=== PATIENT | female | born 1985 | race African-American/Black ===

== ENCOUNTER 2017-03-21 18:55 | Emergency (ER) | payer OTHER, SELFPAY ==
[2017-03-21] MEDS ORDERED: HYDROcodone/Acetaminophen 10/325 mg Tablet ONE (19:53)
== END 2017-03-21 20:01 | disposition home or self-care (01) ==
LOC: ERS 18:55
DX: K04.7 Periapical abscess without sinus (principal); K12.0 Recurrent oral aphthae; K02.9 Dental caries, unspecified
CPT/HCPCS: 99282

== ENCOUNTER 2017-05-02 10:54 | Emergency (ER) | payer OTHER, SELFPAY | END 2017-05-02 12:25 | disposition home or self-care (01) | LOC: ERS 10:54 | DX: R21 Rash and other nonspecific skin eruption (principal) | CPT/HCPCS: 99282 ==

== ENCOUNTER 2017-05-19 13:07 | Emergency (ER) | payer SELFPAY ==
[2017-05-19] MEDS ORDERED: Morphine 4 MG/ML VIAL ONE (14:37)
[2017-05-19] MEDS ORDERED: Ketorolac Tromethamine 30 MG/ML VIAL ONE (14:37)
[2017-05-19] MEDS ORDERED: Bupivacaine 0.25% 10 ML VIAL ONE (14:49)
[2017-05-19] MEDS ORDERED: Lidocaine 1% PF 5 ML VIAL ONE (14:49)
== END 2017-05-19 15:19 | disposition home or self-care (01) ==
LOC: ERS 13:07
DX: K02.9 Dental caries, unspecified (principal)
CPT/HCPCS: 93005; 96372; J1885; J2001; J2270; S0020

== ENCOUNTER 2017-07-03 12:35 | Emergency (ER) | payer SELFPAY ==
--- NOTE | 2017-07-03 14:35 | RAD ---
TWO VIEW CHEST SERIES: Indication: Chest pain, anxiety. FINDINGS: Reference made to 02-02-09 exam. Redemonstration of S-shaped scoliosis of the imaged thoracolumbar spine. There is a rounded density o verlying the left mid to lower chest on the frontal view with a subtle area of nodular density, invol ving the inferior substernal region on the lateral projection. This is not further characterized. The right lung is clear. No effusion or discrete pneumothorax. IMPRESSION: There is nodular density overlying the left chest as discussed above. Finding is nonspecific. Recomme nd a follow up two view chest radiograph to exclude persistence on the frontal and lateral projection s. Should finding persist a radiograph follow up, CT thorax would be indicated to exclude an underlyi ng nodule. Code LN POS: [facility]
== END 2017-07-03 14:29 | disposition home or self-care (01) ==
LOC: ERS 12:35
DX: R07.89 Other chest pain (principal)
CPT/HCPCS: 71046; 93005

== ENCOUNTER 2017-08-13 10:18 | Emergency (ER) | payer SELFPAY ==
[2017-08-13] MEDS ORDERED: HYDROcodone/Acetaminophen 10/325 mg Tablet ONE (11:42)
--- NOTE | 2017-08-13 12:24 | RAD ---
LEFT ELBOW 4 VIEWS: Date: 08/13/17 HISTORY: Pain. COMPARISON: None. FINDINGS: Joint spaces are preserved. No fracture or malalignment. No joint effusion. IMPRESSION: Unremarkable left elbow 4 views. POS: [facility]
== END 2017-08-13 13:05 | disposition home or self-care (01) ==
LOC: ERS 10:18
DX: S53.402A Unspecified sprain of left elbow, initial encounter (principal); S16.1XXA Strain of muscle, fascia and tendon at neck level, initial encounter; X58.XXXA Exposure to other specified factors, initial encounter

== ENCOUNTER 2017-08-30 10:18 | Emergency (ER) | payer SELFPAY ==
--- NOTE | 2017-08-30 12:15 | RAD ---
CERVICAL SPINE 3 VIEWS: Date: 08/30/17 HISTORY: 32-year-old female with history of right lateral neck pain, worse with bending, and radiation down ri ght arm and side. FINDINGS: Moderate artifact overlies the cervical spine on the lateral view. C7 and C7-T1 are mostly obscured o n the lateral view, and a portion of the tip of the odontoid and C1 are obscured on the AP open-mouth view. No evidence for significant malalignment. No prevertebral soft tissue swelling. No significant disc osteophytosis. IMPRESSION: No acute process involving the visualized cervical spine. POS: [facility]
[2017-08-30] MEDS ORDERED: Ibuprofen 200 MG TAB ONE (12:25)
[2017-08-30] MEDS ORDERED: Diazepam 5 MG TAB ONE (12:25)
== END 2017-08-30 12:59 | disposition home or self-care (01) ==
LOC: ERS 10:18
DX: M54.2 Cervicalgia (principal); M25.511 Pain in right shoulder
CPT/HCPCS: 72040

== ENCOUNTER 2017-10-30 19:33 | Emergency (ER) | payer SELFPAY ==
[2017-10-30 20:05] LABS: Bilirubin Small (Negative); Blood, Urine Negative (Negative); Clarity CLOUDY (Clear); Glucose, Urine (Dipstick) Negative (Negative); Leukocyte Small (Negative); Nitrite Negative (Negative); Protein, Urine (Dipstick) Trace mg/dL (Neg-Trace); Specific Gravity, Urine 1.031 (1.002-1.036); pH, Urine 5.5 (5.0-9.0)
[2017-10-30 20:07] LABS: Bacteria/HPF 4+ HPF (None Seen); RBC/HPF 0-3 HPF (0-3)
[2017-10-30 20:09] LABS: Pathc Cast-AUWi Flag 3.34 (0-2.49)
[2017-10-30 20:17] LABS: Pregnancy Test - Urine (BHCG) Negative (Negative); Pregu Control Background? CLEAR/WHITE (CLR/WHITE); Pregu Control Bar Appear? YES (CONTROL BAR); Specific Gravity 1.031 (1.002-1.036)
[2017-10-30 20:18] LABS: Hyaline Casts/LPF 0-3 HYALINE CAST LPF (0-3 Hyaline)
--- NOTE | 2017-10-30 20:37 | RAD ---
THREE VIEWS LEFT HAND; 10/30/17 HISTORY: Pain. Left thumb pain, times 1 week. COMPARISON: 07/31/14. FINDINGS: No fracture. No cortical irregularity. No periosteal reaction. No significant loss of joint space hei ght. IMPRESSION: Unremarkable three views left hand. POS: [facility]
[2017-10-30 20:44] LABS: #Basophils 0.1 thou/uL (0.0-0.2); #Eosinphils 0.4 thou/uL (0.0-0.7); #Lymphocytes 2.3 thou/uL (1.20-3.40); #Monocytes 0.5 thou/uL (0.11-0.59); #Neutrophils 2.3 thou/uL (1.40-6.50); %Basophils 1.2 % (0.0-1.0); %Eosinophils 7.5 % (0.0-10.0); %Lymphocytes 41.6 % (21.0-51.0); %Monocytes 8.8 % (0.0-10.0); Hemoglobin 11.8 g/dL (12.0-16.0); Mean Corpuscular HGB CONC 32.3 g/dL (32.0-36.0); Mean Corpuscular Hemoglobin 26.9 pg (27.0-31.0); Mean Corpuscular Volume 83.3 fl (81.0-99.0); Mean Platelet Volume 9.1 fL (7.4-10.4); Platelet Count 184 thou/uL (130-400); RBC Distribution Width 13.1 % (11.5-14.5); Red Blood Cell (RBC) Count 4.39 mill/uL (4.20-5.40); White Blood Cell (WBC) Count 5.6 thou/uL (4.8-10.8)
[2017-10-30 21:00] LABS: ALT (SGPT) 9 U/L (8-55); AST (SGOT) 22 U/L (5-34); Albumin 4.2 g/dL (3.5-5.0); Alkaline Phosphatase 31 U/L (40-150); Anion Gap 10 mmol/L (10-20); BUN (Urea Nitrogen) 10 mg/dL (7.0-18.7); Bilirubin, Total 0.4 mg/dL (0.2-1.2); Calc. Creatinine Clearance 0 mL/min (70-130); Calcium 8.9 mg/dL (7.8-10.44); Carbon Dioxide 27 mmol/L (22-29); Chloride 105 mmol/L (98-107); Estimated GFR-MDRD Greater than 90; Globulin 3.4 g/dL (2.4-3.5); Glucose 60 mg/dL (70-105); Lipase 29 U/L (8-78); Potassium 3.6 mmol/L (3.5-5.1); Protein, Total 7.6 g/dL (6.0-8.3); Sodium 138 mmol/L (136-145)
[2017-10-30] MEDS ORDERED: Ketorolac Tromethamine 30 MG/ML VIAL ONE (21:57)
== END 2017-10-30 23:04 | disposition home or self-care (01) ==
LOC: ERS 19:33
DX: N39.0 Urinary tract infection, site not specified (principal); M79.645 Pain in left finger(s)
CPT/HCPCS: 29125; 80053; 81003; 81015; 81025; 83690; 85025; 96374; J1885

== ENCOUNTER 2017-11-13 21:50 | Emergency (ER) | payer SELFPAY ==
[2017-11-13 23:26] LABS: #Basophils 0.1 thou/uL (0.0-0.2); #Eosinphils 0.5 thou/uL (0.0-0.7); #Lymphocytes 1.9 thou/uL (1.20-3.40); #Monocytes 0.5 thou/uL (0.11-0.59); #Neutrophils 2.3 thou/uL (1.40-6.50); %Basophils 1.5 % (0.0-1.0); %Lymphocytes 35.7 % (21.0-51.0); %Monocytes 9.4 % (0.0-10.0); %Neutrophils 44.3 % (42.0-75.0); Hemoglobin 10.9 g/dL (12.0-16.0); Mean Corpuscular HGB CONC 32.8 g/dL (32.0-36.0); Mean Corpuscular Hemoglobin 27.4 pg (27.0-31.0); Mean Corpuscular Volume 83.6 fL (78.0-98.0); Mean Platelet Volume 9.1 fL (7.4-10.4); Platelet Count 179 thou/uL (130-400); RBC Distribution Width 13.4 % (11.5-14.5); Red Blood Cell (RBC) Count 3.97 mill/uL (4.20-5.40); White Blood Cell (WBC) Count 5.3 thou/uL (4.8-10.8)
[2017-11-13 23:40] LABS: Large Platelets SLIGHT; MDiff Complete? YES; PLT Morphology Comment Appears Adequate
[2017-11-13 23:41] LABS: ALT (SGPT) 11 U/L (8-55); AST (SGOT) 22 U/L (5-34); Albumin 3.8 g/dL (3.5-5.0); Alkaline Phosphatase 31 U/L (40-150); Anion Gap 10 mmol/L (10-20); BUN (Urea Nitrogen) 17 mg/dL (7.0-18.7); Bilirubin, Total 0.2 mg/dL (0.2-1.2); Calc. Creatinine Clearance 0 mL/min (70-130); Calcium 8.6 mg/dL (7.8-10.44); Carbon Dioxide 26 mmol/L (22-29); Chloride 106 mmol/L (98-107); Estimated GFR-MDRD Greater than 90; Globulin 2.9 g/dL (2.4-3.5); Glucose 91 mg/dL (70-105); Potassium 3.6 mmol/L (3.5-5.1); Protein, Total 6.7 g/dL (6.0-8.3); Sodium 138 mmol/L (136-145)
--- NOTE | 2017-11-14 07:48 | ULT ---
PRELIMINARY REPORT/[facility]/EMERGENTY AFTER-HOURS PROCEDURE US Duplex Left Lower Extremity Veins CLINICAL HISTORY: 32 years old, female; Pain and signs and symptoms; Edema, localized; Lower extremity, left; Foot and other: Left ankle; Patient HX: Lle pain/edema at ankle/foot x 1 day. ; Additional info: Elevated ddim er TECHNIQUE: Real-time duplex ultrasound scan of the left lower extremity veins integrating B-mode two dimensional vascular structure, Doppler spectral analysis, color flow Doppler imaging and compression. COMPARISON: No relevant prior studies available. FINDINGS: Deep veins: Normal. No DVT in the visualized common femoral, femoral, proximal deep femoral, poplitea l or calf veins. The veins demonstrate normal color flow, are normally compressible, with normal phas ic flow and/or augmentation response. Superficial veins: Normal. No thrombus in the visualized great saphenous vein. Soft tissues: No acute findings. No popliteal cyst. Lymph nodes: There multiple prominent lymph nodes in the LEFT groin, possibly reactive. IMPRESSION: No acute LEFT lower extremity DVT. Thank you for allowing us to participate in the care of your patient. Dictated and Authenticated by: Paulo Mcdaniels MD 11/14/2017 1:17 AM Central Time ([place] & [place]) FINAL REPORT LEFT LOWER EXTREMITY VENOUS DOPPLER: HISTORY: Leg swelling and edema. COMPARISON: None. TECHNIQUE: Real-time, vela scale, color flow, and spectral analysis of the left lower extremity venous system wa s performed. The common femoral, femoral, proximal portion of greater saphenous and deep femoral vei ns as well as the popliteal and posterior tibial veins were interrogated. There is normal flow, augmentation, and compression. IMPRESSION: No deep vein thrombosis. POS: [facility]
== END 2017-11-14 01:43 | disposition home or self-care (01) ==
LOC: ERS 21:50
DX: S16.1XXA Strain of muscle, fascia and tendon at neck level, initial encounter (principal); R60.0 Localized edema
CPT/HCPCS: 36415; 80053; 83880; 85025; 85379

== ENCOUNTER 2018-02-21 21:07 | Emergency (ER) | payer SELFPAY ==
[2018-02-21 21:39] LABS: Bilirubin Small (Negative); Blood, Urine Negative (Negative); Clarity Hazy (Clear); Glucose, Urine (Dipstick) Negative (Negative); Leukocyte Small (Negative); Nitrite Negative (Negative); Protein, Urine (Dipstick) Trace mg/dL (Neg-Trace); Urobilinogen 0.2 mg/dL (0.2-1.0)
[2018-02-21 21:40] LABS: Pregnancy Test - Urine (BHCG) Negative (Negative); Pregu Control Background? CLEAR/WHITE (CLR/WHITE); Pregu Control Bar Appear? YES (CONTROL BAR); Specific Gravity 1.028 (1.002-1.036); Specific Gravity, Urine 1.028 (1.002-1.036)
[2018-02-21 21:44] LABS: Bacteria/HPF Rare-Few HPF (None Seen); Hyaline Casts/LPF 0-3 HYALINE CAST LPF (0-3 Hyaline); Pathc Cast-AUWi Flag 4.65 (0-2.49); RBC/HPF 0-3 HPF (0-3); WBC/HPF 21-50 HPF (0-3)
[2018-02-21] MEDS ORDERED: Ondansetron HCl/PF 4 MG/2 ML Vial ONE ×2 (21:51→23:20)
[2018-02-21] MEDS ORDERED: Mag-Al 1200 mg/1200 mg/30 ML UDCUP ONE (21:53)
[2018-02-21] MEDS ORDERED: Lidocaine Viscous Sol 2% 15 ml UD Cup ONE (21:53)
[2018-02-21 22:03] LABS: #Eosinphils 0.4 thou/uL (0.0-0.7); #Lymphocytes 1.8 thou/uL (1.20-3.40); #Monocytes 0.4 thou/uL (0.11-0.59); #Neutrophils 2.2 thou/uL (1.40-6.50); %Basophils 0.3 % (0.0-1.0); %Eosinophils 7.3 % (0.0-10.0); %Neutrophils 46.3 % (42.0-75.0); Hemoglobin 12.1 g/dL (12.0-16.0); Mean Corpuscular HGB CONC 31.5 g/dL (32.0-36.0); Mean Corpuscular Hemoglobin 25.9 pg (27.0-31.0); Mean Corpuscular Volume 82.3 fL (78.0-98.0); Mean Platelet Volume 10.1 fL (7.4-10.4); Platelet Count 232 thou/uL (130-400); RBC Distribution Width 14.6 % (11.5-14.5); Red Blood Cell (RBC) Count 4.65 mill/uL (4.20-5.40); White Blood Cell (WBC) Count 4.8 thou/uL (4.8-10.8)
[2018-02-21 22:23] LABS: ALT (SGPT) 10 U/L (8-55); AST (SGOT) 20 U/L (5-34); Albumin 4.3 g/dL (3.5-5.0); Alkaline Phosphatase 40 U/L (40-150); Anion Gap 9 mmol/L (10-20); BUN (Urea Nitrogen) 13 mg/dL (7.0-18.7); Bilirubin, Total 0.3 mg/dL (0.2-1.2); Calc. Creatinine Clearance 0 mL/min (70-130); Calcium 8.7 mg/dL (7.8-10.44); Carbon Dioxide 22 mmol/L (22-29); Chloride 107 mmol/L (98-107); Estimated GFR-MDRD 88; Globulin 3.2 g/dL (2.4-3.5); Glucose 87 mg/dL (70-105); Lipase 28 U/L (8-78); Potassium 3.6 mmol/L (3.5-5.1); Protein, Total 7.5 g/dL (6.0-8.3); Sodium 134 mmol/L (136-145)
[2018-02-21] MEDS ORDERED: Morphine 2 MG/ML SYRINGE ONE (23:20)
== END 2018-02-22 00:12 | disposition home or self-care (01) ==
LOC: ERS 21:07
DX: N39.0 Urinary tract infection, site not specified (principal)
CPT/HCPCS: 80053; 81003; 81015; 81025; 83690; 85025; 96361; 96374; 96375; 96376; J2270; J2405

== ENCOUNTER 2018-03-04 22:14 | Emergency (ER) | payer SELFPAY ==
--- NOTE | 2018-03-04 23:50 | RAD ---
PORTABLE CHEST ONE VIEW: 03/04/18 at 11:44 p.m. HISTORY: Chest pain. FINDINGS: The heart size is normal. The lungs are well expanded without focal areas of consolidation, pneumotho races, or pleural effusions. IMPRESSION: No radiographic evidence of acute cardiopulmonary process. POS: [facility]
[2018-03-04 23:54] LABS: #Basophils 0.1 thou/uL (0.0-0.2); #Eosinphils 0.5 thou/uL (0.0-0.7); #Lymphocytes 2.5 thou/uL (1.20-3.40); #Monocytes 0.6 thou/uL (0.11-0.59); #Neutrophils 1.6 thou/uL (1.40-6.50); %Eosinophils 9.6 % (0.0-10.0); %Lymphocytes 48.7 % (21.0-51.0); %Neutrophils 29.7 % (42.0-75.0); Hemoglobin 11.2 g/dL (12.0-16.0); Mean Corpuscular Hemoglobin 25.8 pg (27.0-31.0); Mean Corpuscular Volume 83.1 fL (78.0-98.0); Mean Platelet Volume 10.6 fL (7.4-10.4); Platelet Count 236 thou/uL (130-400); RBC Distribution Width 14.3 % (11.5-14.5); Red Blood Cell (RBC) Count 4.34 mill/uL (4.20-5.40); White Blood Cell (WBC) Count 5.2 thou/uL (4.8-10.8)
[2018-03-05 00:03] LABS: BHCG - Serum Negative (NEGATIVE); Pregs Control Background? CLEAR/WHITE (CLR/WHITE); Pregs Control Bar Appear? YES (CONTROL BAR)
[2018-03-05] MEDS ORDERED: Ketorolac Tromethamine 30 MG/ML VIAL ONE (00:12)
[2018-03-05 00:13] LABS: ALT (SGPT) 17 U/L (8-55); AST (SGOT) 24 U/L (5-34); Albumin 3.9 g/dL (3.5-5.0); Alkaline Phosphatase 30 U/L (40-150); Anion Gap 10 mmol/L (10-20); BUN (Urea Nitrogen) 11 mg/dL (7.0-18.7); Bilirubin, Total 0.2 mg/dL (0.2-1.2); CK (CPK) 93 U/L (29-168); Calc. Creatinine Clearance 0 mL/min (70-130); Calcium 8.9 mg/dL (7.8-10.44); Carbon Dioxide 26 mmol/L (22-29); Chloride 105 mmol/L (98-107); Estimated GFR-MDRD Greater than 90; Globulin 2.7 g/dL (2.4-3.5); Glucose 79 mg/dL (70-105); Potassium 3.8 mmol/L (3.5-5.1); Protein, Total 6.6 g/dL (6.0-8.3); Sodium 137 mmol/L (136-145)
[2018-03-05 00:17] LABS: CKMB 0.7 ng/mL (0-6.6); Troponin I Less than 0.010 ng/mL (< 0.028)
[2018-03-05] MEDS ORDERED: Methocarbamol 500 MG TAB PO SCH (00:30)
== END 2018-03-04 23:59 | disposition home or self-care (01) ==
LOC: ERS 22:14
DX: R07.89 Other chest pain (principal)
CPT/HCPCS: 71045; 80053; 82553; 84484; 84703; 85025; 93005; 96361; 96374; J1885

== ENCOUNTER 2018-06-02 22:51 | Emergency (ER) | payer SELFPAY ==
[2018-06-02] MEDS ORDERED: Ketorolac Tromethamine 30 MG/ML VIAL ONE (23:16)
[2018-06-02] MEDS ORDERED: Metoclopramide HCl 10 MG/2 ML VIAL ONE (23:16)
[2018-06-02] MEDS ORDERED: diphenhydrAMINE 50 MG/ML VIAL ONE (23:17)
== END 2018-06-03 00:33 | disposition home or self-care (01) ==
LOC: ERS 22:51
DX: R51 Headache (principal)
CPT/HCPCS: 96365; 96375; J1200; J1885; J2765

== ENCOUNTER 2018-07-13 03:09 | Emergency (ER) | payer SELFPAY ==
[2018-07-13] MEDS ORDERED: HYDROcodone/Acetaminophen 5/325 mg Tablet ONE (03:27)
== END 2018-07-13 03:58 | disposition home or self-care (01) ==
LOC: ERS 03:09
DX: N89.8 Other specified noninflammatory disorders of vagina (principal); L25.9 Unspecified contact dermatitis, unspecified cause
CPT/HCPCS: 99283

== ENCOUNTER 2019-01-07 20:13 | Emergency (ER) | payer SELFPAY ==
[2019-01-07 20:52] LABS: Bilirubin Negative (Negative); Blood, Urine Negative (Negative); Clarity Clear (Clear); Glucose, Urine (Dipstick) Normal (Negative); Leukocyte 500 Leu/uL (Negative); Mucous/LPF Rare LPF (<2+); Nitrite Negative (Negative); Pregnancy Test - Urine (BHCG) Negative (Negative); Pregu Control Background? CLEAR/WHITE (CLR/WHITE); Pregu Control Bar Appear? YES (CONTROL BAR); Protein, Urine (Dipstick) 10 mg/dL (Neg-Trace); RBC/HPF 0-3 HPF (0-3); Specific Gravity 1.023 (1.002-1.036)
[2019-01-07 20:56] LABS: Bacteria/HPF 1+ HPF (None Seen)
== END 2019-01-07 21:17 | disposition home or self-care (01) ==
LOC: ERS 20:13
DX: R10.32 Left lower quadrant pain (principal); R10.31 Right lower quadrant pain; F41.9 Anxiety disorder, unspecified
CPT/HCPCS: 81003; 81015; 81025; 99284

== ENCOUNTER 2019-01-26 20:19 | Emergency (ER) | payer SELFPAY ==
[2019-01-26] MEDS ORDERED: Ciprofloxacin HCL/Dexameth Otic Drops 7.5 ml Bottle ONE (22:03)
[2019-01-26] MEDS ORDERED: Ibuprofen 200 MG TAB ONE (22:03)
== END 2019-01-26 22:11 | disposition home or self-care (01) ==
LOC: ERS 20:19
DX: H60.92 Unspecified otitis externa, left ear (principal); F41.9 Anxiety disorder, unspecified
CPT/HCPCS: 99282

== ENCOUNTER 2019-02-07 18:18 | Emergency (ER) | payer SELFPAY | END 2019-02-07 18:48 | disposition home or self-care (01) | LOC: ERS 18:18 | DX: L03.213 Periorbital cellulitis (principal); F41.9 Anxiety disorder, unspecified | CPT/HCPCS: 99283 ==

== ENCOUNTER 2019-03-04 11:45 | Emergency (ER) | payer OTHER, SELFPAY | END 2019-03-04 14:04 | disposition home or self-care (01) | LOC: ERS 11:45 | DX: S16.1XXA Strain of muscle, fascia and tendon at neck level, initial encounter (principal); F41.9 Anxiety disorder, unspecified; V43.62XA Car passenger injured in collision with other type car in traffic accident, initial encounter | CPT/HCPCS: 99281 ==

== ENCOUNTER 2019-05-09 19:28 | Emergency (ER) | payer OTHER, SELFPAY ==
[2019-05-09 19:58] LABS: Bilirubin Negative (Negative); Blood, Urine 3+ (Negative); Clarity Turbid (Clear); Glucose, Urine (Dipstick) Normal (Negative); Leukocyte 500 Leu/uL (Negative); Nitrite Negative (Negative); Protein, Urine (Dipstick) 30 mg/dL (Neg-Trace); Urobilinogen Normal mg/dL (Less than 2); WBC/HPF Greater than 50 HPF (0-3)
[2019-05-09 20:01] LABS: Pregnancy Test - Urine (BHCG) Negative (Negative); Pregu Control Background? CLEAR/WHITE (CLR/WHITE); Pregu Control Bar Appear? YES (CONTROL BAR); Specific Gravity 1.026 (1.002-1.036)
[2019-05-09 20:07] LABS: Bacteria/HPF 1+ HPF (None Seen); Trichomonas/HPF 1+ HPF (None Seen)
[2019-05-09 21:12] LABS: #Basophils 0.1 thou/uL (0.0-0.2); #Eosinphils 0.2 thou/uL (0.0-0.7); #Lymphocytes 2.5 thou/uL (1.20-3.40); #Monocytes 0.7 thou/uL (0.11-0.59); %Basophils 0.8 % (0.0-1.0); %Eosinophils 3.3 % (0.0-10.0); %Lymphocytes 38.4 % (21.0-51.0); %Monocytes 10.8 % (0.0-10.0); %Neutrophils 46.7 % (42.0-75.0); Hemoglobin 10.8 g/dL (12.0-16.0); Mean Corpuscular HGB CONC 32.7 g/dL (32.0-36.0); Mean Corpuscular Hemoglobin 27.4 pg (27.0-31.0); Mean Corpuscular Volume 83.8 fL (78.0-98.0); Mean Platelet Volume 10.4 fL (7.4-10.4); Platelet Count 164 thou/uL (130-400); RBC Distribution Width 13.8 % (11.5-14.5); Red Blood Cell (RBC) Count 3.94 mill/uL (4.20-5.40); White Blood Cell (WBC) Count 6.5 thou/uL (4.8-10.8)
--- NOTE | 2019-05-09 21:22 | RAD ---
Chest AP view INDICATION: Chest pain COMPARISON: Two-view chest radiograph dated July 03, 2017 and a single view of the chest dated 03/04/2018 FINDINGS: Lungs:Stable 1 cm lingular pulmonary nodule. Otherwise clear. Cardiac silhouette:The cardiomediastinal silhouette appears within normal limits. Pulmonary vasculature:Normal Pleural spaces:No pleural effusion or pneumothorax is demonstrated. Upper abdomen:No abnormality seen. Osseous structures: No acute osseous abnormality. Stable thoracolumbar scoliosis. Additional findings:None. IMPRESSION: No acute cardiopulmonary abnormality. Stable 1 cm lingular pulmonary nodule.
[2019-05-09] MEDS ORDERED: Lidocaine 1% (PF) 30 ML VIAL ONE (21:29)
[2019-05-09] MEDS ORDERED: Ondansetron ODT 4 MG TAB ONE (21:29)
[2019-05-09] MEDS ORDERED: Azithromycin 250 MG TAB ONE (21:29)
[2019-05-09] MEDS ORDERED: metroNIDAZOLE 250 MG TAB ONE (21:29)
[2019-05-09] MEDS ORDERED: cefTRIAXone\\ROCEPHIN 250 MG VIAL ONE (21:29)
[2019-05-12 20:58] LABS: Chlamydia by PCR Inconclusive (NotDetected); GC by PCR Inconclusive (NotDetected)
== END 2019-05-09 23:25 | disposition home or self-care (01) ==
LOC: ERS 19:28
DX: A59.01 Trichomonal vulvovaginitis (principal); N73.9 Female pelvic inflammatory disease, unspecified; R07.9 Chest pain, unspecified; F41.9 Anxiety disorder, unspecified
CPT/HCPCS: 36415; 71045; 81003; 81015; 81025; 84484; 85025; 87480; 87491; 87510; 87591; 87660; 93005; 96372; J0696; J2001; Q0162

== ENCOUNTER 2019-08-02 00:30 | Emergency (ER) | payer SELFPAY ==
[2019-08-02 01:33] LABS: Bacteria/HPF 2+ HPF (None Seen); Bilirubin Negative (Negative); Blood, Urine Trace (Negative); Clarity Turbid (Clear); Glucose, Urine (Dipstick) Normal (Negative); Leukocyte 500 Leu/uL (Negative); Nitrite Negative (Negative); Protein, Urine (Dipstick) Negative (Neg-Trace); RBC/HPF 0-3 HPF (0-3); Urobilinogen Normal mg/dL (Less than 2); WBC/HPF Greater than 50 HPF (0-3)
[2019-08-02 01:40] LABS: Amphetamine Not Detected (NotDetected); Barbiturates Screen Not Detected (NotDetected); Benzodiazepine Screen Not Detected (NotDetected); Cocaine Metabolite Screen Not Detected (NotDetected); Medtox Control Line Valid? VALID (VALID); Medtox Reader # READER 4; Methadone Not Detected (NotDetected); Methamphetamine Not Detected (NotDetected); Opiate Screen Not Detected (NotDetected); Oxycodone Screen Not Detected (NotDetected); Phencyclidine (PCP) Not Detected (NotDetected); THC/Cannabinoid Screen Not Detected (NotDetected); Tricyclic Screen Not Detected (NotDetected)
== END 2019-08-02 01:30 | disposition home or self-care (01) ==
LOC: ERS 00:30
DX: F10.129 Alcohol abuse with intoxication, unspecified (principal); F41.9 Anxiety disorder, unspecified; R06.4 Hyperventilation
CPT/HCPCS: 80306; 81003; 81015; 99284

== ENCOUNTER 2019-12-08 22:06 | Emergency (ER) | payer SELFPAY ==
[2019-12-08 22:54] LABS: Bilirubin Negative (Negative); Blood, Urine 2+ (Negative); Clarity Turbid (Clear); Glucose, Urine (Dipstick) Normal (Negative); Ketone, Urine Negative (Negative); Leukocyte 500 Leu/uL (Negative); Nitrite Negative (Negative); Protein, Urine (Dipstick) 50 mg/dL (Neg-Trace); RBC/HPF 21-50 HPF (0-3); Specific Gravity, Urine 1.012 (1.002-1.036); Squamous Epithelial 0-3 HPF (0-3); Urobilinogen Normal mg/dL (Less than 2); WBC/HPF Greater than 50 HPF (0-3); pH, Urine 6.5 (5.0-9.0)
[2019-12-08 22:55] LABS: Pregnancy Test - Urine (BHCG) Negative (Negative); Pregu Control Background? CLEAR/WHITE (CLR/WHITE); Pregu Control Bar Appear? YES (CONTROL BAR); Specific Gravity 1.012 (1.002-1.036)
[2019-12-08 23:07] LABS: Bacteria/HPF 2+ HPF (None Seen)
[2019-12-08] MEDS ORDERED: Acetaminophen 500 MG TAB ONE (23:10)
== END 2019-12-08 23:58 | disposition home or self-care (01) ==
LOC: ERS 22:06
DX: N30.91 Cystitis, unspecified with hematuria (principal); F41.9 Anxiety disorder, unspecified
CPT/HCPCS: 81003; 81015; 81025; 99284

== ENCOUNTER 2020-07-29 21:44 | Emergency (ER) | payer OTHER, SELFPAY ==
[2020-07-29] MEDS ORDERED: Ketorolac Tromethamine 30 MG/ML VIAL ONE (22:25)
[2020-07-29] MEDS ORDERED: Metoclopramide HCl 10 MG/2 ML VIAL ONE (22:25)
[2020-07-29] MEDS ORDERED: diphenhydrAMINE 50 MG/ML VIAL ONE (22:25)
== END 2020-07-29 23:12 | disposition home or self-care (01) ==
LOC: ERS 21:44
DX: R51.9 Headache, unspecified (principal)
CPT/HCPCS: 96372; 99283; J1200; J1885; J2765

== ENCOUNTER 2020-07-31 21:43 | Emergency (ER) | payer SELFPAY ==
[2020-07-31] MEDS ORDERED: Ketorolac Tromethamine 30 MG/ML VIAL ONE (22:38)
[2020-07-31] MEDS ORDERED: Cyclobenzaprine 10 MG TAB ONE (22:38)
== END 2020-07-31 22:49 | disposition home or self-care (01) ==
LOC: ERS 21:43
DX: G44.209 Tension-type headache, unspecified, not intractable (principal)
CPT/HCPCS: 99283; J1885

== ENCOUNTER 2021-04-27 21:54 | Emergency (ER) | payer SELFPAY ==
[2021-04-27] MEDS ORDERED: Ibuprofen 800 MG TAB ONE (23:04)
[2021-04-27] MEDS ORDERED: Acetaminophen 500 MG TAB ONE (23:04)
[2021-04-27 23:44] LABS: Bacteria/HPF 1+ HPF (None Seen); Bilirubin Negative (Negative); Blood, Urine Negative (Negative); Clarity Clear (Clear); Glucose, Urine (Dipstick) Normal (Negative); Ketone, Urine Negative (Negative); Leukocyte 500 Leu/uL (Negative); Nitrite Negative (Negative); Protein, Urine (Dipstick) 20 mg/dL (Neg-Trace); RBC/HPF 0-3 HPF (0-3); Specific Gravity, Urine 1.021 (1.002-1.036); pH, Urine 6.5 (5.0-9.0)
== END 2021-04-28 00:20 | disposition home or self-care (01) ==
LOC: ERS 21:54
DX: N10 Acute pyelonephritis (principal)
CPT/HCPCS: 81003; 81015; 99284

== ENCOUNTER 2021-11-28 13:56 | Emergency (ER) | payer SELFPAY ==
[2021-11-28] MEDS ORDERED: Ibuprofen 200 MG TAB ONE (14:59)
[2021-11-28] MEDS ORDERED: Carbamide Peroxide 6.5% Otic Drops 15 ml Bottle ONE (14:59)
[2021-11-28] MEDS ORDERED: Lidocaine Viscous Sol 2% 15 ml UD Cup ONE (16:17)
== END 2021-11-28 16:50 | disposition home or self-care (01) ==
LOC: ERS 13:56
DX: H61.22 Impacted cerumen, left ear (principal); H60.502 Unspecified acute noninfective otitis externa, left ear; H93.12 Tinnitus, left ear
CPT/HCPCS: 69210

== ENCOUNTER 2022-02-27 14:26 | Emergency (ER) | payer SELFPAY ==
[2022-02-27 16:45] LABS: #Eosinphils 0.7 thou/uL (0.0-0.7); #Monocytes 0.7 thou/uL (0.11-0.59); #Neutrophils 3.2 thou/uL (1.40-6.50); %Basophils 0.3 % (0.0-1.0); %Eosinophils 10.3 % (0.0-10.0); %Lymphocytes 30.8 % (21.0-51.0); %Monocytes 10.6 % (0.0-10.0); Hemoglobin 11.8 g/dL (12.0-16.0); Mean Corpuscular HGB CONC 31.7 g/dL (32.0-36.0); Mean Corpuscular Hemoglobin 28.3 pg (27.0-31.0); Mean Corpuscular Volume 89.5 fL (78.0-98.0); Mean Platelet Volume 10.2 fL (7.4-10.4); Platelet Count 195 thou/uL (130-400); RBC Distribution Width 13.6 % (11.5-14.5); Red Blood Cell (RBC) Count 4.17 mill/uL (4.20-5.40); White Blood Cell (WBC) Count 6.6 thou/uL (4.8-10.8)
[2022-02-27 17:03] LABS: ALT (SGPT) 8 U/L (8-55); AST (SGOT) 19 U/L (5-34); Albumin 3.8 g/dL (3.5-5.0); Alkaline Phosphatase 30 U/L (40-110); Anion Gap 9 mmol/L (10-20); BUN (Urea Nitrogen) 10 mg/dL (7.0-18.7); Bilirubin, Total 0.3 mg/dL (0.2-1.2); Calc. Creatinine Clearance 0 mL/min (70-130); Calcium 9.1 mg/dL (7.8-10.44); Carbon Dioxide 30 mmol/L (22-29); Chloride 105 mmol/L (98-107); Estimated GFR 95; Globulin 2.6 g/dL (2.4-3.5); Glucose 66 mg/dL (70-105); Potassium 3.7 mmol/L (3.5-5.1); Protein, Total 6.4 g/dL (6.0-8.3); Sodium 140 mmol/L (136-145)
== END 2022-02-27 17:33 | disposition home or self-care (01) ==
LOC: ERS 14:26
DX: J20.9 Acute bronchitis, unspecified (principal); R07.89 Other chest pain
CPT/HCPCS: 36415; 71045; 80053; 84484; 85025; 85379; 93005

== ENCOUNTER 2023-06-11 09:22 | Emergency (ER) | payer SELFPAY ==
[2023-06-11] MEDS ORDERED: Ibuprofen 200 MG TAB ONE (09:55)
== END 2023-06-11 10:17 | disposition home or self-care (01) ==
LOC: ERS 09:22
DX: M54.2 Cervicalgia (principal); K08.89 Other specified disorders of teeth and supporting structures
CPT/HCPCS: 99283